=== PATIENT | male | born 1950 | race Caucasian/White ===

== ENCOUNTER → 2016-12-28 | Day surgery (SDC) | payer MEDICARE, OTHER ==
[2016-12-28] VITALS (17 sets, daily range): BP systolic 82–144; BP diastolic 53–105; PULSE 40–119; RESP 11–20; O2SAT 98–100
[~2016-12-28] VITALS: Ht 182.9 cm; Wt 87.0 kg
[~2016-12-28] MED LIST: 0.9% Sodium Chloride 1,000 ML IV SCH; APIX5TAB PO; Atropine 1 mg/10 mL (Code) Syringe ONE; DILT120C10 PO; Dexamethasone 4 mg/mL Inj ONE; EPHEDrine/NS 5 mg/mL 5 mL Syringe ONE; Glycopyrrolate 0.2 MG/ML 1mL Inj ONE; HYDROcodone-APAP 5-325 mg Tablet PO PRN; Heparin 10,000 Unit/1,000 mL NS Premix IV ONE; Isoproterenol 200 mCg/50 mL D5W IV IV ONE; Lactated Ringer's 1,000 ML IV SCH; METH2.5T PO; MULT1CAP33 PO; MetoCLOpramide 5 mg/mL 2 mL Inj ONE; Neostigmine 1 mg/mL 10 mL Inj ONE; Ondansetron 2 mg/mL 2 mL Inj IVPUSH PRN; Ondansetron 2 mg/mL 2 mL Inj ONE; Phenylephrine 10,000 mCg/mL Inj ONE; Propofol 10 mg/mL 20 mL Inj ONE; fentaNYL-PF 50 mCg/mL 2 mL Inj ONE; fish oil PO; vitamin d PO
[2016-12-28 08:36] LABS: BASOPHILS % (AUTO) 0.1 % (0-3); MONOCYTES % (AUTO) 9.1 % (4-12); Mean Corpuscular Hemoglobin 32.3 pg (27.0-35.0); Mean Corpuscular Volume 91.3 fL (81-100); NEUTROPHILS % (AUTO) 72.6 % (40-74); Platelet Count 178 bil/L (150-400)
[2016-12-28 08:52] LABS: INR 0.98 ratio
--- NOTE | 2016-12-28 09:23 | PCM.HPANE ---
Patient Data Date of Service: Dec 28, 2016 (0915) Surgeon Admitting Provider: Attending Provider:Valerio Fuentes MD Primary Care Physician:Naty Og Other Provider:Leo Lerner Anesthesia Reason for Visit Ablation/ Aflutter Ht/WT & BMI Height (Feet): 6 Weight (Kilograms): 87.000 Body Mass Index 25.98 Allergies Coded Allergies: pollen extracts (Verified Allergy, Intermediate, 12/28/16) itching, burning watery eyes Past Anesthesia History Anesthesia History: Denies:: Abnormal Airway, Anesthesia Reactions, Difficult Intubation, Fam Anesthesia Reaction, Fam Malignant Hypertherm, Malignant Hyperthermia Diabetes History Hx Diabetes?: No Medications Reported Medications [fish oil] No Conflict Check1 Capsule PO DAILY 12/28/16 [vitamin d] No Conflict Check2,500 Mg PO DAILY 12/28/16 Multivitamin (Multivitamins)1 Each Capsule1 Each PO DAILY 12/28/16 Methotrexate Sodium (Methotrexate)2.5 Mg [id number] Mg PO WEEKLY 12/28/16 Apixaban (Eliquis)5 Mg Tablet5 Mg PO BID 12/28/16 Diltiazem ER 120 Mg Cap.er.[id number] Mg PO TID Ref 0 12/28/16 History History of ENT Problems?: No HEENT History: Denies:: Abnormal Airway Cataracts Difficult Intubation Dysphagia Glaucoma Hearing Problem Sinus Problem TMJ Denture Type: None Teeth Condition: Within Normal Limits Hx of Heart Problems?: Yes Cardiovascular History: Denies:: AICD Abdominal Aortic Aneurism Atrial Fibrillation Cardiac Surgery Chest Pain Congestive Heart Failure Coronary Artery Disease Edema Heart Murmur Hypertension Irregular Heartbeat Pacemaker Peripheral Vascular Rheumatic Fever Thrombophlebitis Valvular Heart Disease Hx of Respiratory Problem?: No Respiratory History: Denies:: Asthma COPD Chest Surgery Cough Dyspnea Emphysema Hemoptysis Oxygen Administration Pneumonia Pulmonary Embolism Tuberculosis Use of C-PAP Machine Use of Inhalers / NEBS Hx Neurologic Problems?: No Hx of GI Problems?: No Hx of Problems?: No Hx Musculoskeletal Problems?: No Hx of Psycho/Social Problems?: No Hx Surgeries?: Yes (knee 1966, arhtroscopic right knee 1984) Other History: Positive for:: Hospitalization History Blood Transfusions: Positive for:: Accept Blood Products? Denies:: Blood Transfusions Hx Diabetes: No Hx Alcohol Use: Yes (rarely)Hx Substance Use: Yes (currently) Stop/Bang Risk Assessment Category Category 1A: Patient has history of documented sleep apnea, and HAS NOT received any narcotic, sedative or anesthesia administration during this stay. Category 1B: Patient has history of documented sleep apnea, and HAS received any narcotic , sedative or anesthesia administration during this stay Category 2: Patient has SUSPECTED Obstructive Sleep Apnea, and HAS received any narcotic , sedative or anesthesia administration during this stay. Category 3: Patient has SUSPECTED Obstructive Sleep Apnea and HAS NOT received narcotic, sedative or anesthesia administration during this stay. Category 4: Outpatient in Procedural Areas with known sleep apnea or who screen positive for High Risk via the STOP/BANG questionnaire. Exam Exam Vital Signs Vital Signs Date Time Temp Pulse Resp B/P Pulse Ox O2 Delivery O2 Flow Rate FiO2 12/28/16 08:48 15 143/105 12/28/16 08:45 36.6 119 13 139/104 98 Room Air General Appearance: Alert, Oriented X3, Cooperative, No Acute Distress HEENT/AIRWAY: MP 2 Lungs: Clear to Auscultation Heart: Exam Unremarkable Meds/Labs/Diagnostics Labs Test 12/28/16 08:30 White Blood Count 7.8th/mm3 (3.8-10.1) Red Blood Count 4.80mil/mm3 (4.40-5.80) Hemoglobin 15.5g/dL (13.8-17.2) Hematocrit 43.8% (41.0-50.0) Mean Corpuscular Volume 91.3fL (81-100) Mean Corpuscular Hemoglobin 32.3pg (27.0-35.0) Mean Corpuscular Hemoglobin Concent 35.4% (32.0-37.0) Red Cell Distribution Width 14.2% (12.3-15.4) Platelet Count 178bil/L (150-400) Neutrophils (%) (Auto) 72.6% (40-74) Lymphocytes (%) (Auto) 16.1% (14-46) Monocytes (%) (Auto) 9.1% (4-12) Eosinophils (%) (Auto) 2.0% (0-5) Basophils (%) (Auto) 0.1% (0-3) Prothrombin Time 10.5sec (8.1-12.5) Prothromb Time International Ratio 0.98ratio Sodium Level 139mEq/L (134-144) Potassium Level 4.2mEq/L (3.5-5.2) Chloride Level 103mEq/L (97-108) Carbon Dioxide Level 22mmol/L (18-29) Blood Urea Nitrogen 15mg/dL (8-27) Creatinine 0.98mg/dL (0.76-1.27) Estimat Glomerular Filtration Rate 81mL/min (>59) Glucose Level 100mg/dL (60-99) Calcium Level 9.3mg/dL (8.5-10.1) Plan Impression Patient chart reviewed, patient interviewed and anesthestic plan with risks, benefits, and alternatives discussed, and informed consent obtained. ASA Physical Status: ASA2 Mod Systemic Disease Anesthetic Plan: GA Bene/Risks/Altern/Consents: Yes HP Complete Prior to Induction: Yes Bhanu Peñaloza MD Dec 28, 2016 09:23
--- NOTE | 2016-12-28 13:16 | DRSVH ---
[facility] [address] [place] [address] Echocardiogram Report Name: PUJA TESFAYE JStudy Date: Height: 72 in Hospital Exam Location: [facility] Weight: 195 lb Gender: Male BSA: 2.1 m2 : 1950 Age: 66 yrs BP: 114/84 mmHg Reason For Study: Atrial fibrillation Ordering Physician: Dr. Allan Fuentes Performed By: Carol Burrell Referring Physician: KIANA FUENTES Interpretation Summary No thrombus is detected in the left atrial appendage. Procedure: Informed consent for Transesophageal Echocardiogram, and use of a contrast agent as needed, was obtained prior to the procedure. Sedation was managed by anesthesiologist; see anesthesiology notes for details. The transesophageal probe was passed without difficulty. The patient tolerated the procedure well without evidence of orophangeal or esophageal trauma. The patient was in normal sinus rhythm during the exam. Atria: No thrombus is detected in the left atrial appendage. Aortic Valve: The aortic valve is trileaflet. The aortic valve opens well. Reading Physician:01:15 PM
--- NOTE | 2016-12-28 13:21 | NUR ---
Echocardiogram completed. Jose tax technician will inform Dr Fuentes of completion and upload images.Pt remains stable, SBp 100's.Dr Fuentes informed of pt's prolonged QT and QTc intervals on 12 lead EKG.Pt continues to have frequent bradycardic episodes to high 30's, with HR averaging 40's to mid 50's. Pt's significant other at bedside. pt remians alert and oriented.
--- NOTE | 2016-12-28 13:23 | PROCED ---
[address] [address] PROCEDURE NOTE PATIENT: PUJA TESFAYE : 1950 MR#: [id number] ADMIT: 12/28/2016 JOB ID: [id number] DATE OF SERVICE: 12/28/2016 PREOPERATIVE DIAGNOSIS(ES): Typical counter-clockwise atrial flutter. POSTOPERATIVE DIAGNOSIS(ES): Normal sinus rhythm. PROCEDURES PERFORMED: 1. Comprehensive electrophysiology study with left atrial pacing and recording via the coronary sinus catheter. 2. Three-dimensional electroanatomic mapping using the CARTO 3 system. 3. Atrial flutter ablation (cavotricuspid isthmus ablation; supraventricular tachycardia ablation). 4. Drug infusion with isoproterenol. 5. Fluoroscopy. SURGEON: Valerio Fuentes M.D., electrophysiology attending. TAX DIRECTOR: Juan Francisco Lam PA-C; Pilo Castro. ANESTHESIA: General endotracheal anesthesia was undertaken for this case. INDICATION: The patient is a pleasant 66-year-old man who presented with rapid typical atrial flutter and mild cardiomyopathy. After discussion of the risks and benefits of catheter based mapping and ablation, he opted to proceed. PROCEDURAL DESCRIPTION: Following informed signed consent, the patient was taken to the EP laboratory in a fasting state. The patient was prepped and draped in the usual sterile fashion. He underwent a preprocedural transesophageal echocardiogram to confirm lack of intracardiac thrombus. Please see separate dictated report for the details of that procedure. This was completed and the patient had not been on a full month of anticoagulation. The right inguinal region was infiltrated with 1% lidocaine. Then, using the modified Seldinger technique, one 8 and two 7-Greenlandic sheaths were inserted through the right femoral vein. Under fluoroscopic guidance, a deflectable decapolar catheter was advanced to the coronary sinus with the most proximal bipoles at the os of the sinus. A 20 pole Livewire catheter was used to encircle the tricuspid anulus. A J curve Smart Touch irrigated ablation catheter was brought to the field and used to create a three-dimensional electroanatomic map of the right atrium, tricuspid anulus, and cavotricuspid isthmus. The patient was in atrial flutter at the onset of the case. Entrainment was undertaken from the isthmus at the 6 o'clock position showing the isthmus to be in the circuit with a post pacing interval minus tachycardia cycle length of 22 msec. A linear series of ablations was performed from the ventricular aspect of the isthmus into the IVC aspect. In the process, the patient's flutter broke and his sinus node was slow to awaken. We paced him from the ventricle first and then from the atrium. Ultimately he was also started on isoproterenol 2 mcg per minute. We were able to get him off of pacing and isoproterenol and his sinus node re-emerged. He was on a considerable dose of diltiazem for rate control. We waited 20-30 minutes, and during that time, bidirectional block was confirmed. I did have to place further lesions along the isthmus while pacing the coronary sinus os to achieve a block. The ablation catheter was redeployed through an SRO long sheath for stability. During the course of this study, we did complete a comprehensive electrophysiology study with right atrial pacing and recording, right ventricular and His bundle recording, left atrial pacing and recording via the coronary sinus catheter. All catheters and sheaths removed and manual pressure was held for hemostasis. The patient was taken to the ICU for monitoring, bed rest and discharge. COMPLICATIONS: None. ESTIMATED BLOOD LOSS: Negligible. FINDINGS: 1. Baseline rhythm is atrial flutter post ablation. He is in sinus rhythm with an RR interval of 1023 msec, DC 153 msec, QRS 110 msec, QT 500 msec. 2. Intracardiac intervals: AH 114 msec, HV 38 msec. 3. Retrograde conduction: VA Wenckebach is seen at 280 msec with concentric atrial activation. 4. Atrial flutter ablation as described above with a bidirectional block with a transisthmus time of 153 msec in the medial to lateral direction and 148 msec in the lateral to medial direction. IMPRESSION: Successful cavotricuspid isthmus ablation. PLAN: 1. Bed rest x4 hours. 2. Discontinue diltiazem. 3. Continue anticoagulation with the first dose given. 4. Followup with Juan Francisco Lam in four weeks and with Dr. Infante in three months. ATTENDING STATEMENT: Valerio Fuentes M.D., electrophysiology attending, was present for and supervised/performed all aspects of this procedure.
--- NOTE | 2016-12-28 14:08 | PCM.ANEP1 ---
Post Anesthesia PACU Phase 1 Assessment Vital Signs Vital Signs Date Time Temp Pulse Resp B/P Pulse Ox O2 Delivery O2 Flow Rate FiO2 12/28/16 13:15 50 16 110/72 99 Nasal Cannula 2.00 12/28/16 13:00 44 11 104/75 100 Nasal Cannula 2.00 12/28/16 12:45 46 14 102/65 99 Nasal Cannula 2.00 12/28/16 12:40 44 12 90/61 98 Nasal Cannula 2.00 12/28/16 12:36 40 12 100/69 98 Nasal Cannula 2.00 12/28/16 12:33 40 20 84/57 Nasal Cannula 2.00 12/28/16 12:31 40 15 82/53 100 Nasal Cannula 2.00 12/28/16 12:27 53 15 144/73 99 Nasal Cannula 2.00 12/28/16 08:48 15 143/105 12/28/16 08:45 36.6 119 13 139/104 98 Room Air Anesthetic Administered: GA Level of Alertness: Awake, talking NUÑEZ's with Equal Strength: Yes Pain: No Nausea or Vomiting: No CV Function & Hydration Stable: Yes Airway Device: Oxygen Delivery: Nasal Cannula Lungs: Clear to Auscultation Dermatome Level: Full Sensation PACU Phase 2 Assessment Complications: No Patient Instructions Provided: N/A Bhanu Peñaloza MD Dec 28, 2016 14:08
--- NOTE | 2016-12-28 14:31 | NUR ---
Report given to Fabiana Fuchs R.N. right groin intact.Patient has eaten lunch, tolerated well. Eliquis given at approx 13;39.Less episodes of bradycardia(below 40) noted.Remains in sinus rhythm heart rate now 60. Dr Fuentes stopped by to update patient.
--- NOTE | 2016-12-28 14:38 | DRSVH ---
[facility] [address] [address] Echocardiogram Report Name: PUJA TESFAYE JStudy Date: Height: 72 in Hospital Exam Location: [facility] Weight: 192 lb Gender: Male BSA: 2.1 m2 : 1950 Age: 66 yrs BP: 102/65 mmHg Reason For Study: Pericardial Effusion Ordering Physician: Performed By: Jose Jeter Interpretation Summary A two-dimensional transthoracic echocardiogram with color flow and Doppler was performed in limited views only. There is no pericardial effusion. Compared to the previous study (which was a DENNY) earlier today, the patient is now in sinus rhythm. Procedure: A two-dimensional transthoracic echocardiogram with color flow and Doppler was performed in limited views only. Prior echo dated 12/14/2016. The patient was in sinus bradycardia with heart rates between 47-50 bpm during the exam. Pericardium/ Pleura There is no pericardial effusion. Reading Physician:02:37 PM
--- NOTE | 2016-12-28 16:58 | NUR ---
Recovery/Discharge Assumed care about 1430. VSS. Right groin stable. IVF complete. Dr. Fuentes in about 1600 and stated ok to discharge pt. when bedrest complete after reviewing telemetry. Bedrest complete at 1630. Pt. up and ambulated to bathroom and in mari without change in groin. Discharge instructions given, see sheets. Verbalizes understanding. IVs discontinued intact. Discharged ambulatory with S.O. and all belongings at 1656 in no distress.
== END | disposition home or self-care (01) ==
LOC: SOUO 00:55
PROVIDERS: ATTEND Internal Medicine Cardiovascular Disease
DX: I48.3 Typical atrial flutter (principal); I42.9 Cardiomyopathy, unspecified; I10 Essential (primary) hypertension; Z79.01 Long term (current) use of anticoagulants; M35.3 Polymyalgia rheumatica; Z79.82 Long term (current) use of aspirin
CPT/HCPCS: 36415; 80048; 85025; 85610; 93005; 93613; 93621; 93623; 93653; C1730; C1731; C1732; C1893; C8924; C8925; J1100; J1644; J2370; J2405; J2704; J2710; J2765; J3010